=== PATIENT | male | born 1960 | race Caucasian/White ===

== ENCOUNTER 2017-01-06 19:32 | Emergency (ER) | payer MEDICARE ==
[~2017-01-06] VITALS: Ht 182.9 cm; Wt 72.6 kg
[~2017-01-06 19:32] MED LIST: AGGRENOX (D1 CAPSULE FT; ASPIRIN 81MG TA81 MG PO; LISINOPRIL 5MG T5 MG PO; LORTAB 5/500 501 TAB PO; NOMEDS; PEPCID20 MG OR; PERSANTINE50 MG PO; PHENERGAN 25MG.25 MG PR; PRAVASTATIN40 MG PO; VOLTAREN75 MG PO; ZANTAC 150150 MG PO
[2017-01-06 19:55] LABS: LYMPH # 1.9 K/mm3 (0.7-4.5); LYMPH % 47.4 % (10-50)
--- NOTE | 2017-01-06 19:59 | Emergency Room Report ---
History of Present Illness Time Seen by 1958 Presenting Problem in Triage Pt arrived:Walked Presenting Problem:abdominal pain and diarrhea x 2 days. generalized weakness. 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 N Clinical Suspician of Infection? N Mental Status: 1 - Regular (Normal Baseline) Sepsis Risk:Low Sepsis Risk Have you (or family members/close friends) recently traveled outside the [place]? N If Yes, where/when: Have you had exposure to infectious disease within the past month? TB? Other? Specify: Source patient, RN notes reviewed, family, old records Exam Limitations no limitations Comment wm who has been drinking with abd cramps and diarrhea with no rash or melena and no vomitus Cardiac Chest Pain Chest pain indicative of cardiac No Timing/Duration this evening Severity moderate ALLERGIES Coded Allergies: No Known Allergies (01/06/17) History Medical History General CAD? No Angina: No IN: No Hypertension? No Hyperlipidemia? Yes CHF? No DVT? No PE? No COPD? No Asthma? No Anemia? No GERD? No Gastric ulcers? No GI Bleed? No Hernia? No Thyroid Problems? No Hypothyroidism? No CVA? Yes Seizures? Yes Diabetes? No End Stage Renal Disease? No UTI? No Stones? No BPH? No GB Disease: No Nephritic Syndrome? No Asplenia? No Hepatitis? No Sickle Cell Disease? No Arthritis? No Migraines? No Cataracts? No Glaucoma? No MRSA? No HIV? No TB? No Anxiety? No Depression? No Cancer? No Immunization Hx DT/Tetanus UNKNOWN Flu THISFLUSEA Pneumonia 11/27/11 Surgical Hx Previous Surgery?Y Left arm repair X Back surgery in 1999 3 CARDIAC STENTS 03/22/11 Family History Family Hx Diabetes Yes CAD Yes Hypertension Yes Hyperlipidemia Yes Cancer No TB No Social History Smoking Hx Smoker: Current Every Day Smoker Tobacco: Yes Type Cigarettes Packs/day 1 1/2 - 2 Packs Alcohol Alcohol: Yes Drugs none Review of Systems All Other Systems Reviewed and Negative Constitutional denies fever Eyes denies drainage ENT denies: ear pain, epistaxis, throat pain. Respiratory denies cough, denies shortness of breath, denies wheezing Cardiovascular denies chest pain, denies syncope Gastrointestinal see HPI, abdominal pain, diarrhea, denies nausea, denies vomiting Genitourinary denies: frequency, hesitancy. Musculoskeletal denies back pain, denies joint pain, denies joint swelling, denies neck pain Skin denies rash Psychiatric/Neurological denies headache, denies seizure Physical Exam Vital Signs Vital Signs Date Time Temp Pulse Resp B/P Pulse O2 O2 Flow FiO2 Ox Delivery Rate 01/06 1943 97.9 83 20 16899 98 01/07 1936 97.9 83 20 98 - WBC >12,000 or <4,000 or 10% bands? 2 or more SIRS Criteria Met? B/P:168/ MAP:122 Creatinine >2.0? UA output<0.5ml/kg/hr for 2 hrs? Platelet count >100,000? Lactate >2.0mmol/1? INR >1.2 or PTT > than 60 sec? Evidence of Organ Dysfunction? Provider documented clinical suspician of infection? N Sepsis Criteria Count: 1 Sepsis Risk: Low Sepsis Risk General Appearance no apparent distress Eye Exam - bilateral eye PERRL, bilateral eye EOMI Ear, Nose, Throat normal ENT inspection Neck supple Respiratory Status No: respiratory distress. Lung Sounds bilateral: lungs clear. 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 No Results/Orders Laboratory Tests 01/06/171999: Urine Color YELLOW, Urine Appearance CLEAR, Urine pH 6.0, Ur Specific [place] <= 1.005, Urine Protein NEGATIVE, Urine Ketones NEGATIVE, Urine Blood NEGATIVE, Urine Nitrate NEGATIVE, Urine Bilirubin NEGATIVE, Urine Urobilinogen 0.2, Ur Leukocyte Esterase NEGATIVE, Ur Squamous Epith Cells OCC, Urine Bacteria 1+, Urine Glucose NEGATIVE 01/06/17 1950: Sodium 132 L, Potassium 3.2 L, Chloride 93 L, Carbon Dioxide 27, BUN 6 L, Creatinine 0.8, Estimated Creat Clear 106, Estimated GFR (MDRD) 100, Glucose 107 H, Calcium 8.7, Total Bilirubin 0.4, AST 169 H, ALT 151 H, Alkaline Phosphatase 115, Total Protein 8.5 H, Albumin 3.5, Globulin 5.0 H, Albumin/ Globulin Ratio 0.7 L, Amylase 111, Lipase 363, WBC 4.0 L, RBC 4.69, Hgb 15.0, Hct 44.5, MCV 94.9, RDW 13.1, Plt Count 172, MPV 7.0 L, Gran % 43.2, Gran # 1.7 , Lymphocytes % 47.4, Monocytes % 7.9, Eosinophils % 1.0, Basophils % 0.5, Lymphocytes # 1.9, Monocytes # 0.3, Eosinophils # 0.0, Basophils # 0.0, PUBS MCHC 33.7, MCH 32.0 H, Alcohols 268 H Current Medication Orders Sig/Polly Start time Last Medication Dose Route Stop Time Status Admin Ondansetron HCl 4 MG ONCE ONE 01/07 2000 DC 01/06 IV 01/06 Sodium Chloride 1,000 ML .Q1H1M 01/07 2000 DC 01/06 IV 01/06 Sodium Chloride 10 ML PRN PRN 01/07 2000 AC IV 01/08 1952 Sodium Chloride 10 ML PRN PRN 01/07 2000 AC IV 01/07 1953 Ondansetron HCl 0 .STK-MED ONE 01/06 1954 DC .ROUTE Orders Procedure Date/time Status DIET-NOTHING BY MOUTH 01/[address] ABD & PELVIS W/O CONTRAST 01/[address] ABD/PELVIS REQ 01/06 1959 Complete IV SALINE LOCK 01/06 1953 Active URINALYSIS/COMPLETE 01/06 1951 Complete LIPASE 01/06 1951 Complete COMPLETE METABOLIC PANEL 01/06 1951 Complete CBC WITH AUTO DIFF 01/06 1951 Complete AMYLASE 01/06 1951 Complete ALCOHOL 01/06 1951 Complete XRAY/CT/US XRAY/CT/US CT abdomen, pelvis CT interpretation by discussed w/radiologist Time results known: 2118 CT Results abnormal (ileus) Departure Departure Time of Disposition 2118 Disposition DC Home or Self Care(routine) Clinical Impression Primary Impression: Ileus Secondary Impressions: Alcohol intoxication Qualifiers: Complication of substance-induced condition: with unspecified complication Qualified Code: F10.129 - Alcohol abuse with intoxication, unspecified Condition STABLE Patient Instructions DI for Alcohol Abuse Additional Instructions please see pcp about etoh use and treatment Discharge Counseling Counseled pt/family regarding diagnosis, test results, follow up needs ED Critical Care Critical Care No at 1003
[2017-01-06 20:15] LABS: URINE BILIRUBIN - DIPSTICK NEGATIVE (NEG); URINE BLOOD NEGATIVE (NEG)
[2017-01-06 20:28] LABS: URINE SQUAMOUS CELLS OCC #/hpf (OCC)
[2017-01-06 21:22] VITALS: BP 140/74
--- NOTE | 2017-01-07 09:44 | RADIOLOGY REPORT PS360 ---
CT ABD PELVIS W/O CONTRAST CLINICAL INDICATION: ABDOMINAL PAIN, DIARRHEA, CHRONIC ALCOHOLISM ORDERING PHYSICIAN: Shelia De Paz MD PATIENT AGE: 56 years COMPARISON: None TECHNIQUE: Axial images obtained with sagittal and coronal reformats. PROCEDURE: Oral Contrast: None IV Contrast: None . FINDINGS: Lower thorax: Small hiatal hernia with mild nonspecific thickening of the distal esophagus ABDOMEN: Liver: Diffuse fatty liver, no definite space-occupying lesion Gallbladder: Cholecystectomy. No ductal dilatation Pancreas: No masses or peripancreatic fluid collections. Spleen: Unremarkable. Adrenals: Unremarkable Kidneys/ureters: Punctate nonobstructing left renal calculi. Subcentimeter hyperdensity in the left renal cortex laterally and superiorly and may be due to small hyperdense cyst. Stomach bowel: Fluid noted throughout minimally distended small bowel consistent with mild ileus/enteritis. Diffuse diverticulosis of the sigmoid colon. No evidence of diverticulitis. Appendix: No evidence of appendicitis. PELVIS: Reproductive: Unremarkable Bladder: Mildly distended. No obvious stones or masses. ABDOMEN & PELVIS: Peritoneum: No abnormal fluid collections. No obvious inflammatory changes. No free air. Lymph nodes: No enlarged lymph nodes apparent. There are scattered calcified lymph nodes in the epigastric region and portal area Vasculature: No evidence of abdominal aortic aneurysm. No retroperitoneal hemorrhage evident. Bones: No acute fracture IMPRESSION: 1. Nonobstructing left nephrolithiasis. 2. Fluid throughout minimally distended small bowel consistent with ileus/enteritis. 3. Diffuse fatty liver. 4. Small hiatal hernia with mild nonspecific thickening of the distal esophagus. 5. Diverticulosis of the sigmoid colon
== END 2017-01-06 21:23 | disposition home or self-care (01) ==
LOC: ER 19:32
PROVIDERS: Emergency Medicine
DX: K56.7 Ileus, unspecified (principal); F10.129 Alcohol abuse with intoxication, unspecified
CPT/HCPCS: G6040; J2405

== ENCOUNTER 2017-06-16 21:39 | Emergency (ER) | payer MEDICARE ==
[~2017-06-16] VITALS: Ht 182.9 cm; Wt 65.8 kg
--- NOTE | 2017-06-16 21:58 | Emergency Room Report ---
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 N Clinical Suspician of Infection? N Mental Status: 1 - Regular (Normal Baseline) Sepsis Risk:Low Sepsis Risk Have you (or family members/close friends) recently traveled outside the [place]? N If Yes, where/when: Have you had exposure to infectious disease within the past month? N TB? Other? Specify: Source patient, RN notes reviewed, EMS, old records Exam Limitations no limitations Comment pt with hx of prev cva in past and was recently released fron [facility] for cap and etoh use with extensive rehab - he had no chest pain or syncope and had tingling in lower ext Cardiac Chest Pain Chest pain indicative of cardiac No Timing/Duration this evening Severity moderate ALLERGIES Coded Allergies: No Known Allergies (04/07/17) Home Medications Active Scripts Prednisone (Prednisone 20MG) 20 MG PO BID #10 TAB Prov: 04/08/17 Azithromycin (Zithromycin (Z-MARI) 250MG Tab) 250 MG PO DAILY #6 TAB Prov: 04/08/17 Reported Medications Atorvastatin Calcium (Atorvastatin) 20 MG PO DAILY Clonazepam (Klonopin 1MG) 1 MG PO DAILY FOLIC ACID (Folic Acid) 1 MG PO DAILY Metoprolol Tartrate (Metoprolol) 12.5 MG PO BID Pantoprazole Sodium (Pantoprazole 40MG) 40 MG PO BID Quetiapine Fumarate (Quetiapine 25MG) 25 MG PO BID THIAMINE HCL (Vitamin B-1) 100 MG PO DAILY Warfarin Sodium (Warfarin 4MG) 2 MG PO DAILY History Medical History General CAD? No Angina: No CA: No Hypertension? No Hyperlipidemia? Yes CHF? No DVT? No PE? No COPD? No Asthma? No Anemia? No GERD? No Gastric ulcers? No GI Bleed? No Hernia? No Thyroid Problems? No Hypothyroidism? No CVA? Yes Seizures? Yes Diabetes? No Renal Insuffiency? No End Stage Renal Disease? No UTI? No Stones? No BPH? No GB Disease: No Nephritic Syndrome? No Asplenia? No Hepatitis? No Sickle Cell Disease? No Arthritis? No Migraines? No Cataracts? No Glaucoma? No MRSA? No HIV? No TB? No Anxiety? No Depression? No Cancer? No More? Yes Additional hx: ETOH USE Immunization Hx DT/Tetanus UNKNOWN Flu THISFLUSEA Pneumonia 11/27/11 Surgical Hx Previous Surgery?Y Left arm repair X Back surgery in 1999 3 CARDIAC STENTS 03/22/11 Family History Family Hx Diabetes Yes CAD Yes Hypertension Yes Hyperlipidemia Yes Cancer No TB No Social History Smoking Hx Smoker: Current Every Day Smoker Tobacco: Yes Type Cigarettes Packs/day 1 1/2 - 2 Packs Alcohol Alcohol: Yes Drugs none Review of Systems All Other Systems Reviewed and Negative Constitutional denies fever Eyes denies drainage ENT denies: ear pain, throat pain. Respiratory denies cough, denies wheezing Cardiovascular denies chest pain, denies syncope Gastrointestinal denies abdominal pain, denies nausea, denies vomiting Genitourinary denies: dysuria, frequency, hesitancy, hematuria. Musculoskeletal denies back pain, denies joint pain, denies joint swelling, denies neck pain Skin denies rash Psychiatric/Neurological see HPI, denies seizure, tingling Physical Exam Vital Signs Vital Signs Date Time Temp Pulse Resp B/P Pulse O2 O2 Flow FiO2 Ox Delivery Rate 06/17 0051 86 20 130/88 98 06/16 2329 98.0 77 16 153/87 99 06/16 2249 78 18 140/82 99 06/16 2142 98.2 80 18 149/87 96 - WBC >12,000 or <4,000 or 10% bands? 2 or more SIRS Criteria Met? B/P:130/88 MAP:107 Creatinine >2.0? UA output<0.5ml/kg/hr for 2 hrs? Platelet count >100,000? Lactate >2.0mmol/1? INR >1.2 or PTT > than 60 sec? Evidence of Organ Dysfunction? Provider documented clinical suspician of infection? N Sepsis Criteria Count: 0 Sepsis Risk: Low Sepsis Risk General Appearance no apparent distress Eye Exam - bilateral eye PERRL, bilateral eye EOMI Ear, Nose, Throat normal ENT inspection Neck supple Respiratory Status No: respiratory distress. Lung Sounds bilateral: lungs clear. 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 No Results/Orders Laboratory Tests 06/16/177: Sodium 133 L, Potassium 3.7, Chloride 99, Carbon Dioxide 28, BUN 7, Creatinine 0.6 L, Estimated Creat Clear 126, Estimated GFR (MDRD) 139, Glucose 103, Calcium 9.1, Total Bilirubin 0.4, AST 15, ALT 17, Alkaline Phosphatase 96, Troponin I 0.12 H, Total Protein 7.3, Albumin 3.3 L, Globulin 4.0 H, Albumin/ Globulin Ratio 0.8 L, PT 19.7 H, INR 1.81 H, WBC 10.3, RBC 3.88 L, Hgb 11.5 L, Hct 34.9 L, MCV 89.9, RDW 13.4, Plt Count 383, MPV 7.4, Gran % 68.9, Gran # 7.1, Lymphocytes % 21.5, Monocytes % 6.2, Eosinophils % 3.0, Basophils % 0.3, Lymphocytes # 2.2, Monocytes # 0.6, Eosinophils # 0.3, Basophils # 0.0, PUBS MCHC 32.9, MCH 29.6 06/16/17 2147: Urine Color YELLOW, Urine Appearance CLEAR, Urine pH 7.0, Ur Specific [place] 1.010, Urine Protein NEGATIVE, Urine Ketones NEGATIVE, Urine Blood NEGATIVE, Urine Nitrate NEGATIVE, Urine Bilirubin NEGATIVE, Urine Urobilinogen 0.2, Ur Leukocyte Esterase NEGATIVE, Urine RBC OCC, Urine WBC OCC, Ur Squamous Epith Cells 3-5, Urine Bacteria 1+, Hyaline Casts 5-10, Urine Mucus 1+, Urine Glucose NEGATIVE 06/16/17 0018: Troponin I 0.11 H Current Medication Orders Sig/Polly Start time Last Medication Dose Route Stop Time Status Admin Sodium Chloride 10 ML PRN PRN 06/16 2200 AC IV 06/17 2158 Orders Procedure Date/time Status DIET-NOTHING BY MOUTH 06/17 B Active TROPONIN I 06/16 2337 Complete 12 LEAD EKG-BESSON (INITIAL) 06/16 2237 Active ELECTROCARDIOGRAM REQUEST 06/[address] HEAD W/O CONTRAST 06/16 2207 Active PROTHROMBIN TIME 06/[address] SCAN REQ 06/16 2159 Complete IV SALINE LOCK 06/16 2159 Active URINALYSIS/COMPLETE 06/16 2159 Complete TROPONIN I 06/16 2159 Complete COMPLETE METABOLIC PANEL 06/16 2159 Complete CBC WITH AUTO DIFF 06/16 2159 Complete 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 ST/Twave chgs XRAY/CT/US XRAY/CT/US CT head CT interpretation by discussed w/radiologist Time results known: 109 CT Results abnormal (see report) Departure Departure Time of Disposition 113 Disposition DC Home or Self Care(routine) Clinical Impression Primary Impression: TIA (transient ischemic attack) Qualifiers: Transient cerebral ischemia type: unspecified Qualified Code: G45.9 - Transient cerebral ischemic attack, unspecified Secondary Impressions: Elevated troponin Condition STABLE Referrals Sky Fox MD (Family) Patient Instructions DI for Transient Ischemic Attack Additional Instructions keep appt with pcp this am Discharge Counseling Counseled pt/family regarding diagnosis, test results, follow up needs ED Critical Care Critical Care No at 0115
--- NOTE | 2017-06-16 21:58 | Emergency Room Report ---
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 N Clinical Suspician of Infection? N Mental Status: 1 - Regular (Normal Baseline) Sepsis Risk:Low Sepsis Risk Have you (or family members/close friends) recently traveled outside the [place]? N If Yes, where/when: Have you had exposure to infectious disease within the past month? N TB? Other? Specify: Source patient, RN notes reviewed, EMS, old records Exam Limitations no limitations Comment pt with hx of prev cva in past and was recently released fr[facility] for cap and etoh use with extensive rehab - he had no chest pain or syncope and had tingling in lower ext Cardiac Chest Pain Chest pain indicative of cardiac No Timing/Duration this evening Severity moderate ALLERGIES Coded Allergies: No Known Allergies (04/07/17) Home Medications Active Scripts Prednisone (Prednisone 20MG) 20 MG PO BID #10 TAB Prov: 04/08/17 Azithromycin (Zithromycin (Z-MARI) 250MG Tab) 250 MG PO DAILY #6 TAB Prov: 04/08/17 Reported Medications Atorvastatin Calcium (Atorvastatin) 20 MG PO DAILY Clonazepam (Klonopin 1MG) 1 MG PO DAILY FOLIC ACID (Folic Acid) 1 MG PO DAILY Metoprolol Tartrate (Metoprolol) 12.5 MG PO BID Pantoprazole Sodium (Pantoprazole 40MG) 40 MG PO BID Quetiapine Fumarate (Quetiapine 25MG) 25 MG PO BID THIAMINE HCL (Vitamin B-1) 100 MG PO DAILY Warfarin Sodium (Warfarin 4MG) 2 MG PO DAILY History Medical History General CAD? No Angina: No MS: No Hypertension? No Hyperlipidemia? Yes CHF? No DVT? No PE? No COPD? No Asthma? No Anemia? No GERD? No Gastric ulcers? No GI Bleed? No Hernia? No Thyroid Problems? No Hypothyroidism? No CVA? Yes Seizures? Yes Diabetes? No Renal Insuffiency? No End Stage Renal Disease? No UTI? No Stones? No BPH? No GB Disease: No Nephritic Syndrome? No Asplenia? No Hepatitis? No Sickle Cell Disease? No Arthritis? No Migraines? No Cataracts? No Glaucoma? No MRSA? No HIV? No TB? No Anxiety? No Depression? No Cancer? No More? Yes Additional hx: ETOH USE Immunization Hx DT/Tetanus UNKNOWN Flu THISFLUSEA Pneumonia 11/27/11 Surgical Hx Previous Surgery?Y Left arm repair X Back surgery in 1999 3 CARDIAC STENTS 03/22/11 Family History Family Hx Diabetes Yes CAD Yes Hypertension Yes Hyperlipidemia Yes Cancer No TB No Social History Smoking Hx Smoker: Current Every Day Smoker Tobacco: Yes Type Cigarettes Packs/day 1 1/2 - 2 Packs Alcohol Alcohol: Yes Drugs none Review of Systems All Other Systems Reviewed and Negative Constitutional denies fever Eyes denies drainage ENT denies: ear pain, throat pain. Respiratory denies cough, denies wheezing Cardiovascular denies chest pain, denies syncope Gastrointestinal denies abdominal pain, denies nausea, denies vomiting Genitourinary denies: dysuria, frequency, hesitancy, hematuria. Musculoskeletal denies back pain, denies joint pain, denies joint swelling, denies neck pain Skin denies rash Psychiatric/Neurological see HPI, denies seizure, tingling Physical Exam Vital Signs Vital Signs Date Time Temp Pulse Resp B/P Pulse O2 O2 Flow FiO2 Ox Delivery Rate 06/17 0051 86 20 130/88 98 06/16 2329 98.0 77 16 153/87 99 06/16 2249 78 18 140/82 99 06/16 2142 98.2 80 18 149/87 96 - WBC >12,000 or <4,000 or 10% bands? 2 or more SIRS Criteria Met? B/P:130/88 MAP:107 Creatinine >2.0? UA output<0.5ml/kg/hr for 2 hrs? Platelet count >100,000? Lactate >2.0mmol/1? INR >1.2 or PTT > than 60 sec? Evidence of Organ Dysfunction? Provider documented clinical suspician of infection? N Sepsis Criteria Count: 0 Sepsis Risk: Low Sepsis Risk General Appearance no apparent distress Eye Exam - bilateral eye PERRL, bilateral eye EOMI Ear, Nose, Throat normal ENT inspection Neck supple Respiratory Status No: respiratory distress. Lung Sounds bilateral: lungs clear. 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 No Results/Orders Laboratory Tests 06/16/177: Sodium 133 L, Potassium 3.7, Chloride 99, Carbon Dioxide 28, BUN 7, Creatinine 0.6 L, Estimated Creat Clear 126, Estimated GFR (MDRD) 139, Glucose 103, Calcium 9.1, Total Bilirubin 0.4, AST 15, ALT 17, Alkaline Phosphatase 96, Troponin I 0.12 H, Total Protein 7.3, Albumin 3.3 L, Globulin 4.0 H, Albumin/ Globulin Ratio 0.8 L, PT 19.7 H, INR 1.81 H, WBC 10.3, RBC 3.88 L, Hgb 11.5 L, Hct 34.9 L, MCV 89.9, RDW 13.4, Plt Count 383, MPV 7.4, Gran % 68.9, Gran # 7.1, Lymphocytes % 21.5, Monocytes % 6.2, Eosinophils % 3.0, Basophils % 0.3, Lymphocytes # 2.2, Monocytes # 0.6, Eosinophils # 0.3, Basophils # 0.0, PUBS MCHC 32.9, MCH 29.6 06/16/17 2147: Urine Color YELLOW, Urine Appearance CLEAR, Urine pH 7.0, Ur Specific [place] 1.010, Urine Protein NEGATIVE, Urine Ketones NEGATIVE, Urine Blood NEGATIVE, Urine Nitrate NEGATIVE, Urine Bilirubin NEGATIVE, Urine Urobilinogen 0.2, Ur Leukocyte Esterase NEGATIVE, Urine RBC OCC, Urine WBC OCC, Ur Squamous Epith Cells 3-5, Urine Bacteria 1+, Hyaline Casts 5-10, Urine Mucus 1+, Urine Glucose NEGATIVE 06/16/17 0018: Troponin I 0.11 H Current Medication Orders Sig/Polly Start time Last Medication Dose Route Stop Time Status Admin Sodium Chloride 10 ML PRN PRN 06/16 2200 AC IV 06/17 2158 Orders Procedure Date/time Status DIET-NOTHING BY MOUTH 06/17 B Active TROPONIN I 06/16 2337 Complete 12 LEAD EKG-BESSON (INITIAL) 06/16 2237 Active ELECTROCARDIOGRAM REQUEST 06/[address] HEAD W/O CONTRAST 06/16 2207 Active PROTHROMBIN TIME 06/[address] SCAN REQ 06/16 2159 Complete IV SALINE LOCK 06/16 2159 Active URINALYSIS/COMPLETE 06/16 2159 Complete TROPONIN I 06/16 2159 Complete COMPLETE METABOLIC PANEL 06/16 2159 Complete CBC WITH AUTO DIFF 06/16 2159 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 ST/Twave chgs XRAY/CT/US XRAY/CT/US CT head CT interpretation by discussed w/radiologist Time results known: 109 CT Results abnormal (see report) Departure Departure Time of Disposition 113 Disposition DC Home or Self Care(routine) Clinical Impression Primary Impression: TIA (transient ischemic attack) Qualifiers: Transient cerebral ischemia type: unspecified Qualified Code: G45.9 - Transient cerebral ischemic attack, unspecified Secondary Impressions: Elevated troponin Condition STABLE Referrals Sky Fox MD (Family) Patient Instructions DI for Transient Ischemic Attack Additional Instructions keep appt with pcp this am Discharge Counseling Counseled pt/family regarding diagnosis, test results, follow up needs ED Critical Care Critical Care No at 0115
[2017-06-16 22:16] LABS: URINE BILIRUBIN - DIPSTICK NEGATIVE (NEG); URINE BLOOD NEGATIVE (NEG)
[2017-06-16 22:17] LABS: LYMPH # 2.2 K/mm3 (0.7-4.5); LYMPH % 21.5 % (10-50)
[2017-06-16 22:24] LABS: HEMOGLOBIN 11.5 g/dL (14.1-18.0)
[2017-06-17 01:17] VITALS: BP 143/78
--- NOTE | 2017-06-17 05:50 | RADIOLOGY REPORT PS360 ---
CT HEAD W/O CONTRAST HISTORY: Left-sided paresthesias LEFT SIDE TINGLING ORDERING PHYSICIAN: Shelia De Paz MD PATIENT AGE: 57 years COMPARISON: 03/29/2011 TECHNIQUE: Axial images obtained without contrast. Brain and bone windows reviewed. FINDINGS: No midline shift, mass effect, intracranial hemorrhage, hydrocephalus, or extra-axial fluid collection is evident. Encephalomalacia changes are present in the right parietal lobe. Old lacunar infarctions are present in the basal ganglia The calvarium has an unremarkable appearance. No mastoid effusion. The visualized paranasal sinuses are unremarkable. IMPRESSION: 1. No acute intracranial findings. 2. Chronic ischemic changes. 3. There is no evidence of intracranial hemorrhage, focal mass, or acute territorial infarction. A negative CT does not exclude an acute CVA. A follow-up head CT or MRI is recommended if neurological symptoms persist
== END 2017-06-17 01:21 | disposition home or self-care (01) ==
LOC: ER 21:39
PROVIDERS: Emergency Medicine
DX: G45.9 Transient cerebral ischemic attack, unspecified (principal); R74.8 Abnormal levels of other serum enzymes; F17.210 Nicotine dependence, cigarettes, uncomplicated; E78.5 Hyperlipidemia, unspecified; Z86.73 Personal history of transient ischemic attack (TIA), and cerebral infarction without residual deficits; Z79.01 Long term (current) use of anticoagulants; Z79.899 Other long term (current) drug therapy; R56.9 Unspecified convulsions